=== PATIENT | male | born 1995 | race Two or more races ===

== ENCOUNTER 2019-03-27 12:32 | Emergency (ER) | payer OTHER, MEDICAID ==
[~2019-03-27] VITALS: Ht 170.2 cm; Wt 81.6 kg
[2019-03-27 13:44] LABS: Basophils # (auto) 0.1 uL; Basophils % (auto) 0.8 % (0.0-2.0); Eosinophils # (auto) 0.3 uL; Hematocrit 48.5 % (41.0-53.0); Hemoglobin 16.5 g/dL (13.5-17.5); Lymphocytes % (auto) 45.9 % (10.0-50.0); Mean Corpuscular Hemoglobin 30.4 pg (28.0-32.0); Mean Corpuscular Volume 89.4 fL (80.0-100.0); Monocytes # (auto) 0.4 uL; Monocytes % (auto) 5.9 % (0.0-12.0); Neutrophils # (auto) 2.9 uL; Neutrophils % (auto) 43.4 % (37.0-80.0); Nucleated Red Blood Cells % 0.1 %; Platelet Count (auto) 184 10^3/uL (140-450); Red Blood Cells 5.43 10^6/uL (4.5-5.90); Red Cell Distribution Width 13.1 % (11.8-14.3); White Blood Cell 6.6 10^3/uL (4.4-10.8)
[2019-03-27 14:05] LABS: Albumin 4.2 g/dL (3.4-5.0); BUN/Creatinine Ratio 10.5; Calcium 8.6 mg/dL (8.5-10.1); Potassium 4.4 mmol/L (3.5-5.1)
[2019-03-27 14:07] LABS: Bilirubin, Total 1.7 mg/dL (0.2-1.0); Total Protein 7.7 g/dL (6.4-8.2)
[2019-03-27 14:40] LABS: Urine WBC None Seen /hpf (0 - 3)
[2019-03-27 15:10] LABS: Urine Bacteria NONE SEEN /hpf (None Seen); Urine Blood Negative /uL (Negative); Urine Specific Gravity 1.011 (1.001-1.035)
[2019-03-27 15:21] VITALS: BP 120/76
== END 2019-03-27 15:24 | disposition home or self-care (01) ==
LOC: ER 12:39
DX: R10.9 Unspecified abdominal pain (principal); F12.10 Cannabis abuse, uncomplicated
CPT/HCPCS: 36415; 74176; 80053; 81001; 83690; 85025